=== PATIENT | male | born 1975 | race Caucasian/White ===

== ENCOUNTER 2018-06-27 17:49 | Inpatient (IN) ==
[2018-06-27] MEDS ORDERED: PIPERACILLIN/TAZOBACTAM 4.5 GM/120 ML BAG IV ONE (18:51)
[2018-06-27] MEDS ORDERED: VANCOMYCIN CONSULT ACTIVE PRN (18:51)
[2018-06-27] MEDS ORDERED: VANCOMYCIN HCL 1,750 MG in SODIUM CHLORIDE 0.9% 500 ML IV ONE (18:51)
[2018-06-27] MEDS ORDERED: SODIUM CHLORIDE 0.9% 1000ML 2,000 ML IV ONE (18:51)
--- NOTE | 2018-06-27 19:20 | XRay Report ---
XR chest 1V portable CLINICAL HISTORY: 42 years-old Male presenting with Sepsis. TECHNIQUE: Portable upright AP view of the chest was obtained. COMPARISON: None. FINDINGS: Cardiomediastinal silhouette normal. No focal opacity. Apparent well-defined lucency in the left retr ocardiac region may be projectional. No large effusion or pneumothorax. Osseous structures normal. IMPRESSION: 1. Apparent cavity in the left retrocardiac region is felt to most likely be projectional. Different ial consideration includes a focal bleb, pulmonary cyst, or cavity. No acute cardiopulmonary disease. Electronically signed by: Momo Springer M.D. 06/27/2018 7:19 PM
--- NOTE | 2018-06-27 19:22 | XRay Report ---
XR tibia fibula LT 2V CLINICAL HISTORY: 42 years-old Male presenting with eval for osseous involvement. TECHNIQUE: Frontal and lateral views of the left lower leg were obtained. COMPARISON: None. FINDINGS: Abnormal lucency in the soft tissues of the medial lower leg at the level of the proximal to mid diap hysis of the tibia. No subjacent osseous defect or periosteal reaction. Knee joint and ankle mortise grossly congruent. No acute fracture or malalignment. No advanced degenerative change. IMPRESSION: 1. Soft tissue defect in the medial lower leg. No subjacent osseous involvement. 2. No acute osseous injury. Electronically signed by: Moom Springer M.D. 06/27/2018 7:20 PM
[2018-06-27 19:49] LABS: Base Excess VBG -0.7 mEq/L; Oxygen Saturation VBG 92.9 %; pH VBG 7.48 (7.36-7.41)
[2018-06-27 19:59] LABS: Partial Thromboplastin Time 26.2 Seconds (21.0-31.0); Prothrombin Time 10.5 Seconds (9.0-12.0)
[2018-06-27 20:08] LABS: Alanine Aminotransferase 91 U/L (12-78); Albumin Level 3.8 gm/dl (3.4-5.0); Aspartate Aminotransferase 29 U/L (15-37); BUN Creatinine Ratio 6.9 (10-20); Blood Urea Nitrogen 7 mg/dl (7-18); Calcium 9.5 mg/dl (8.5-10.1); Carbon Dioxide 25 mmol/L (21-32); Chloride 106 mmol/L (98-107); Creatinine Clr Calc Pharmacy 96.6 ml/min; Est GFR (African American) 99.1; Est GFR (Non-African American) 85.5; Glucose 94 mg/dl (70-99); Magnesium 1.9 mg/dl (1.8-2.4); Potassium 3.8 mmol/L (3.5-5.1); Sodium 137 mmol/L (136-145)
[2018-06-27 20:12] LABS: Albumin Globulin Ratio 0.8 (0.9-2); Alkaline Phosphatase 92 U/L (45-117); Bilirubin Direct < 0.1 mg/dl (0-0.2); Bilirubin,Total 0.4 mg/dl (0.2-1); C Reactive Protein 0.69 mg/dl (0-0.29); Creatine Kinase 68 U/L (39-308); Globulin 4.6 gm/dl (2.5-4.0); Phosphorus 1.9 mg/dl (2.5-4.9); Total Protein 8.4 gm/dl (6.4-8.2)
[2018-06-27] MEDS ORDERED: IOVERSOL 100ml IV PRN (21:49)
[2018-06-27 21:51] LABS: Appearance Urine Clear (Clear); Bilirubin Urine Negative (Negative); Blood Urine Negative (Negative); Color Urine Yellow; Glucose Urine UA Negative (Negative); Ketones Urine Negative (Negative); Leukocyte Esterase Urine Negative (Negative); Nitrite Urine Negative (Negative); Protein Urine Negative (Negative); Specific Gravity Urine 1.013 (1.000-1.030); Urobilinogen Urine Negative (Negative)
--- NOTE | 2018-06-27 22:02 | CT Scan Report ---
CT lower leg LT w con CLINICAL HISTORY: 42 years-old Male presenting with eval for necrotic wound/osteo, marker placed at s ite of wound above and below injury site. TECHNIQUE: Multidetector CT of the left lower leg was performed after the administration of intraveno us contrast. IV contrast: 93 mL of Optiray 320. One or more dose lowering techniques were used consis tent with the principles of ALARA (as low as reasonably achievable), including automatic exposure con trol, mA or kV adjustment to individual patient size, and/or use of iterative reconstruction. COMPARISON: None. CT DOSE (mGy.cm): The estimated cumulative dose is 295.61 mGy.cm. FINDINGS: Epic Director topogram: Markers in place projecting over the proximal tibial metaphysis in the mid tibial odette physis. Subcutaneous infiltration, skin thickening, and skin irregularity noted along the anterior tibia. The re is also lili defects in the cutis with foci of subjacent gas superficially. The defect in the cut is is less extensive than the broader infiltrated region of abnormality. The skin defect measures 7.6 cm in length and maximally 3.4 cm in width. There is infiltration to the level of the anterior egovany x of the tibia. There is subtle irregularity and thinning of the periosteum along this region. There is no demonstrable soft tissue density within the medullary cavity to suggest medullary involvement. No convincing evidence of endosteal scalloping. No fracture. Musculature within the lower leg appears preserved. No deep interfascial fluid. Vasculature patent. N o soft tissue emphysema apart from the immediate tissue deep to the wound. IMPRESSION: 1. Subtle periosteal reaction suggested along the anterior tibia at the site of clinical concern wit hout changes of the endosteum or medullary cavity. These findings may suggest reactive changes adjace nt to the open wound. Osteomyelitis is not favored though early osteomyelitis is not excluded and fol low-up is necessary. Notably, MRI is more sensitive for a diagnosis of osteomyelitis. 2. Skin defect with extensive surrounding inflammatory change. No abscess. No CT evidence of necroti zing fasciitis. Electronically signed by: Momo Springer M.D. 06/27/2018 10:01 PM
[2018-06-28 00:11] LABS: Basophils # (auto) 0.02 K/uL (0-0.2); Basophils % (auto) 0.2 %; Eosinophils # (auto) 0.48 K/uL (0-0.5); Eosinophils % (auto) 3.6 %; Hematocrit (blood only) 49.9 % (42-52); Hemoglobin 17.8 g/dL (14.0-18.0); Immature Granulocytes # (auto) 0.13 K/uL (0.00-0.02); Lymphocytes # (auto) 2.41 K/uL (1.2-3.4); Lymphocytes % (auto) 18.3 %; Mean Corpuscular Hgb Conc 35.7 g/dL (32-36); Mean Corpuscular Volume 89.3 fL (80-100); Mean Platelet Volume 10.9 fL (7.4-10.4); Monocytes # (auto) 1.14 K/uL (0.11-0.59); Monocytes % (auto) 8.7 %; Neutrophils # (auto) 8.99 K/uL (1.4-6.5); Neutrophils % (auto) 68.2 %; Platelet Count 264 K/uL (130-400); RDW Coefficient of Variation 12.4 % (11.5-14.5); RDW Standard Deviation 40.5 fL (36.4-46.3); Red Blood Count 5.59 M/uL (4.7-6.1); White Blood Count 13.17 K/uL (4.8-10.8)
[2018-06-28] MEDS ORDERED: VANCOMYCIN CONSULT ACTIVE PRN (01:14)
[2018-06-28] MEDS ORDERED: PIPERACILL/TAZOBAC CONSULT ACTIVE PRN (01:14)
[2018-06-28] MEDS ORDERED: POLYETHYLENE (MIRALAX) 17 GM PACK PO PRN (01:14)
[2018-06-28] MEDS ORDERED: ACETAMINOPHEN 325 MG TAB PO PRN (01:14)
[2018-06-28] MEDS ORDERED: ONDANSETRON INJ 2 MG/ML 2 ML VIAL IV PRN ×3 (01:14→17:38)
[2018-06-28 01:34] LABS: Basophils # (auto) 0.02 K/uL (0-0.2); Basophils % (auto) 0.2 %; Eosinophils # (auto) 0.38 K/uL (0-0.5); Hematocrit (blood only) 43.1 % (42-52); Hemoglobin 15.1 g/dL (14.0-18.0); Immature Granulocytes # (auto) 0.07 K/uL (0.00-0.02); Immature Granulocytes % (auto) 0.7 %; Lymphocytes % (auto) 25.2 %; Mean Corpuscular Volume 89.2 fL (80-100); Monocytes # (auto) 0.54 K/uL (0.11-0.59); Monocytes % (auto) 5.7 %; Neutrophils # (auto) 6.12 K/uL (1.4-6.5); Neutrophils % (auto) 64.2 %; Platelet Count 212 K/uL (130-400); RDW Coefficient of Variation 12.3 % (11.5-14.5); RDW Standard Deviation 40.3 fL (36.4-46.3); Red Blood Count 4.83 M/uL (4.7-6.1); White Blood Count 9.53 K/uL (4.8-10.8)
[2018-06-28] MEDS ORDERED: HYDROmorphone INJ 0.5 MG/0.5 ML SYR ONE (01:36)
[2018-06-28 01:56] LABS: BUN Creatinine Ratio 6.7 (10-20); Creatinine Clr Calc Pharmacy 93.3 ml/min; Est GFR (African American) 94.8; Est GFR (Non-African American) 81.8; Magnesium 1.8 mg/dl (1.8-2.4); Potassium 3.4 mmol/L (3.5-5.1)
[2018-06-28] MEDS: SODIUM CHLORIDE 0.9% 1000ML 1,000 ML IV SCH ×4 (01:56→18:40)
--- NOTE | 2018-06-28 02:08 | Emergency Department Note ---
Entered by Sandy Resendez acting as a scribe for David Sepulveda MD History of Present Illness General Chief complaint: Leg Injury/Pain Stated complaint: LEG INJURY Time Seen by Provider: 06/27/18 18:42 Source: patient History of Present Illness Onset (ago): day(s) 4 Location: lower extremity and left Pain Consistency: + other (worsening ) Maximum Pain Intensity: 6 Quality: + other (wound) Associated symptoms: no fever/chills and no nausea/vomiting The patient is a 42 year old male who presents to the Emergency Room with complaints of a worsening left leg wound that began 4 days prior to arrival. The patient states that 2 months ago he was at work when his left leg got run over by a piece of equipment. The patient states that he did not get treatment for his initial injury. He states that this injury eventually became red before he was put on Augmentin, and the patient states that this relieved his symptoms. The patient states that this redness reoccurred after he stopped the Augmentin, and states that he was placed on this again, which he states helped to relieve his symptoms again. The patient states that his wound has been healing well over the past 3 weeks while he went back to work again. The patient states that he believes he was over working himself at work. He states that a scab formed over his wound, and there was a fluid that began to leak out from under this scab. The patient states that 4 days ago this scab came off of the wound and left his wound open, painful, and red. The patient denies fevers, nausea, and vomiting. Home Medications Home Medications Medication Instructions Recorded Confirmed Type No Known Home Medications 06/27/18 06/27/18 History Allergies Allergy/AdvReac Type Severity Reaction Status Date / Time Sulfa (Sulfonamide Allergy Severe Rash Verified 06/27/18 18:45 Antibiotics) Past Med/Surg History Medical History No significant past medical history Social History Preferred Language: Syriac Communication Ability: Effective Metal Coater Required: No Beliefs That Will Affect Care: None Current Living Situation: Significant Other Feels Safe at Home: Yes Safety Concerns: Feels Safe At This Time Smoking Status: Current every day smoker Tobacco Type: cigarettes Cigarettes Per Day: 10 Hx Alcohol Use: Yes Alcohol type: beer Hx Substance Use: Yes substance use type: marijuana Review of Systems See HPI for pertinent positives & negatives. and A total of 10 systems reviewed and were otherwise negative Physical Exam Vital Signs Vital Signs - 24 hr 06/27/18 17:58 06/27/18 18:53 06/27/18 20:00 Temperature 37 C Temperature Source Oral Sepsis Recent Fever Within 48 Hours No Sepsis Action Taken by Nursing No Action Required Pulse Rate 142 H 97 H 92 H Pulse Rate [Apical] Pulse Rate from SpO2 Sensor Pulse Rhythm Regular Regular Pulse Rhythm [Apical] Pulse Strength Normal Pulse Strength [Apical] Respiratory Rate 20 19 Respiratory Effort / Characteristics Non-Labored Spontaneous Respiratory Depth Normal Respiratory Pattern Blood Pressure 158/114 H 168/115 H Blood Pressure [Right Arm] Blood Pressure Mean 128 132 Blood Pressure Mean [Right Arm] Pulse Oximetry 142 H 98 Oxygen Delivery Method Room Air Room Air 06/27/18 20:52 06/27/18 21:00 06/27/18 22:00 Temperature Temperature Source Sepsis Recent Fever Within 48 Hours Sepsis Action Taken by Nursing Pulse Rate 90 92 H 94 H Pulse Rate [Apical] Pulse Rate from SpO2 Sensor 95 H Pulse Rhythm Pulse Rhythm [Apical] Pulse Strength Pulse Strength [Apical] Respiratory Rate 21 25 H 17 Respiratory Effort / Characteristics Respiratory Depth Respiratory Pattern Blood Pressure 151/104 H 150/108 H Blood Pressure [Right Arm] Blood Pressure Mean 119 122 Blood Pressure Mean [Right Arm] Pulse Oximetry 96 Oxygen Delivery Method 06/27/18 23:00 Temperature Temperature Source Sepsis Recent Fever Within 48 Hours Sepsis Action Taken by Nursing Pulse Rate Pulse Rate [Apical] 87 Pulse Rate from SpO2 Sensor Pulse Rhythm Pulse Rhythm [Apical] Regular Pulse Strength Pulse Strength [Apical] Normal Respiratory Rate 19 Respiratory Effort / Characteristics Non-Labored Spontaneous Respiratory Depth Normal Respiratory Pattern Regular Blood Pressure Blood Pressure [Right Arm] 148/110 H Blood Pressure Mean Blood Pressure Mean [Right Arm] 122 Pulse Oximetry 96 Oxygen Delivery Method Room Air GENERAL: Awake, alert, well-appearing, in no distress HENT: Normocephalic, atraumatic. Oropharynx with dry mucous membranes and otherwise unremarkable. EYES: Normal conjunctiva. Sclera non-icteric. NECK: Supple. No nuchal rigidity. FROM. No JVD. RESPIRATORY: CTAB. CARDIAC: Tachycardic rate, normal rhythm. Extremities warm and well perfused. Pulses equal. ABDOMEN: Soft, non-distended. No tenderness to palpation. No rebound or guardi ng. No masses. RECTAL: Deferred. MUSCULOSKELETAL: Chest examination reveals no tenderness. The back is symmetrical on inspection without obvious abnormality. There is no CVA tenderness to palpation. No joint edema. LOWER EXTREMITIES: Calves are equal size bilaterally and non-tender. 10cm wound to the left mid-pretibial region with evulsed eschar demonstrating a purulent, foul smelling wound bed. No overt surrounding crepitus. Distal PMS intact. NEURO: Normal sensorium. No sensory or motor deficits noted. SKIN: No rash or jaundice noted. Course 1844: The patient was evaluated in room A2, and a complete history and physical examination were performed. 2244: [facility] for [facility] evaluation and states that they will consult Ortho in AM. 2247: I updated the patient on all of the results and he agrees with the treatment plan. Administered Medications Discontinued Medications Hydromorphone HCl (Dilaudid) Confirm Administered Dose 0.5 mg .ROUTE .STK-MED ONE Stop: 06/28/18 01:37 Last Admin: 06/28/18 01:37 Dose: 0.5 mg Documented by: [id number] Piperacillin Sod/Tazobactam Sod (Zosyn) 4.5 gm in 120 mls @ 30 mls/hr IV NOW ONE Stop: 06/27/18 22:50 Last Admin: 06/27/18 23:00 Dose: 30 mls/hr Documented by: [id number] Sodium Chloride (Nss 1000ml) 2,000 mls @ 999 mls/hr IV .Q2H1M ONE Stop: 06/27/18 20:51 Last Infusion: 06/27/18 22:03 Dose: 0 mls/hr Documented by: [id number] Admin: 06/27/18 19:44 Dose: 999 mls/hr Documented by: [id number] Vancomycin HCl 1,750 mg/ (Sodium Chloride) 535 mls @ 200 mls/hr IV NOW ONE; Protocol Stop: 06/27/18 21:31 Last Infusion: 06/27/18 23:03 Dose: 0 mls/hr Documented by: [id number] Admin: 06/27/18 19:45 Dose: 200 mls/hr Documented by: [id number] Ioversol (Optiray 320 100ml) 93 ml IV ONCE PRN PRN Reason: Interaction Checking Stop: 07/01/18 21:48 Last Admin: 06/27/18 21:50 Dose: 93 ml Documented by: [id number] Medical Decision Making Differential Diagnosis Differential diagnosis: Etiologies such as cellulitis, abscess, MRSA infection, DVT, necrotizing fasciitis, dermatitis, drug eruption, as well as others were entertained. Medical Records Attestation: I reviewed the patient's medical records. Home Medications Current Medication List: was personally reviewed by me Laboratory Data Attestation: I reviewed the patient's lab results. Result diagrams: 06/28/18 01:23 06/27/18 19: Lab Results 06/27/18 06/27/18 06/27/18 Range/Units 19: 19: 19:19 WBC 13.17 H (4.8-10.8) K/uL RBC 5.59 (4.7-6.1) M/uL Hgb 17.8 (14.0-18.0) g/dL Hct 49.9 (42-52) % MCV 89.3 (80-100) fL MCH 31.8 (25-34) pg MCHC 35.7 (32-36) g/dL RDW Std Deviation 40.5 (36.4-46.3) fL RDW Coeff of Daly 12.4 (11.5-14.5) % Plt Count 264 (130-400) K/uL MPV 10.9 H (7.4-10.4) fL Immature Gran % (Auto) 1.0 % Neut % (Auto) 68.2 % Lymph % (Auto) 18.3 % Cottle % (Auto) 8.7 % Eos % (Auto) 3.6 % Baso % (Auto) 0.2 % Immature Gran # (Auto) 0.13 H (0.00-0.02) K/uL Neut # (Auto) 8.99 H (1.4-6.5) K/uL Lymph # (Auto) 2.41 (1.2-3.4) K/uL Cottle # (Auto) 1.14 H (0.11-0.59) K/uL Eos # (Auto) 0.48 (0-0.5) K/uL Baso # (Auto) 0.02 (0-0.2) K/uL ESR (0-14) mm/hr PT 10.5 (9.0-12.0) Seconds INR 1.0 (0.9-1.1) APTT 26.2 (21.0-31.0) Seconds PTT Ratio 1.0 VBG pH (7.36-7.41) VBG pCO2 (38-50) mmHg VBG pO2 mmHg VBG HCO3 mmol/L VBG O2 Saturation % VBG Base Excess mEq/L Barometric Pressure mm/Hg Sodium (136-145) mmol/L Potassium (3.5-5.1) mmol/L Chloride (98-107) mmol/L Carbon Dioxide (21-32) mmol/L Anion Gap (3-11) BUN (7-18) mg/dl Creatinine (0.6-1.4) mg/dl Est Cr Clr Drug Dosing ml/min Est GFR ( Amer) Est GFR (Non-Af Amer) BUN/Creatinine Ratio (10-20) Glucose (70-99) mg/dl Lactate (0.4-2.0) mmol/L Calcium (8.5-10.1) mg/dl Phosphorus (2.5-4.9) mg/dl Magnesium (1.8-2.4) mg/dl Total Bilirubin (0.2-1) mg/dl Direct Bilirubin (0-0.2) mg/dl AST (15-37) U/L ALT (12-78) U/L Alkaline Phosphatase (45-117) U/L Total Creatine Kinase (39-308) U/L C-Reactive Protein (0-0.29) mg/dl Total Protein (6.4-8.2) gm/dl Albumin (3.4-5.0) gm/dl Globulin (2.5-4.0) gm/dl Albumin/Globulin Ratio (0.9-2) Procalcitonin < 0.05 (0-0.5) ng/ml Urine Color Urine Appearance (Clear) Urine pH (4.5-7.5) Ur Specific [place] (1.000-1.030) Urine Protein (Negative) Urine Glucose (UA) (Negative) Urine Ketones (Negative) Urine Blood (Negative) Urine Nitrite (Negative) Urine Bilirubin (Negative) Urine Urobilinogen (Negative) Ur Leukocyte Esterase (Negative) 06/27/18 06/27/18 06/27/18 Range/Units 19:19 19:19 19:19 WBC (4.8-10.8) K/uL RBC (4.7-6.1) M/uL Hgb (14.0-18.0) g/dL Hct (42-52) % MCV (80-100) fL MCH (25-34) pg MCHC (32-36) g/dL RDW Std Deviation (36.4-46.3) fL RDW Coeff of Daly (11.5-14.5) % Plt Count (130-400) K/uL MPV (7.4-10.4) fL Immature Gran % (Auto) % Neut % (Auto) % Lymph % (Auto) % Cottle % (Auto) % Eos % (Auto) % Baso % (Auto) % Immature Gran # (Auto) (0.00-0.02) K/uL Neut # (Auto) (1.4-6.5) K/uL Lymph # (Auto) (1.2-3.4) K/uL Cottle # (Auto) (0.11-0.59) K/uL Eos # (Auto) (0-0.5) K/uL Baso # (Auto) (0-0.2) K/uL ESR 46 H (0-14) mm/hr PT (9.0-12.0) Seconds INR (0.9-1.1) APTT (21.0-31.0) Seconds PTT Ratio VBG pH (7.36-7.41) VBG pCO2 (38-50) mmHg VBG pO2 mmHg VBG HCO3 mmol/L VBG O2 Saturation % VBG Base Excess mEq/L Barometric Pressure mm/Hg Sodium 137 (136-145) mmol/L Potassium 3.8 (3.5-5.1) mmol/L Chloride 106 (98-107) mmol/L Carbon Dioxide 25 (21-32) mmol/L Anion Gap 6.0 (3-11) BUN 7 (7-18) mg/dl Creatinine 1.06 (0.6-1.4) mg/dl Est Cr Clr Drug Dosing 96.6 ml/min Est GFR ( Amer) 99.1 Est GFR (Non-Af Amer) 85.5 BUN/Creatinine Ratio 6.9 L (10-20) Glucose 94 (70-99) mg/dl Lactate 2.2 H* (0.4-2.0) mmol/L Calcium 9.5 (8.5-10.1) mg/dl Phosphorus 1.9 L (2.5-4.9) mg/dl Magnesium 1.9 (1.8-2.4) mg/dl Total Bilirubin 0.4 (0.2-1) mg/dl Direct Bilirubin < 0.1 (0-0.2) mg/dl AST 29 (15-37) U/L ALT 91 H (12-78) U/L Alkaline Phosphatase 92 (45-117) U/L Total Creatine Kinase 68 (39-308) U/L C-Reactive Protein 0.69 H (0-0.29) mg/dl Total Protein 8.4 H (6.4-8.2) gm/dl Albumin 3.8 (3.4-5.0) gm/dl Globulin 4.6 H (2.5-4.0) gm/dl Albumin/Globulin Ratio 0.8 L (0.9-2) Procalcitonin (0-0.5) ng/ml Urine Color Urine Appearance (Clear) Urine pH (4.5-7.5) Ur Specific [place] (1.000-1.030) Urine Protein (Negative) Urine Glucose (UA) (Negative) Urine Ketones (Negative) Urine Blood (Negative) Urine Nitrite (Negative) Urine Bilirubin (Negative) Urine Urobilinogen (Negative) Ur Leukocyte Esterase (Negative) 06/27/18 06/27/18 Range/Units 19:19 21:30 WBC (4.8-10.8) K/uL RBC (4.7-6.1) M/uL Hgb (14.0-18.0) g/dL Hct (42-52) % MCV (80-100) fL MCH (25-34) pg MCHC (32-36) g/dL RDW Std Deviation (36.4-46.3) fL RDW Coeff of Daly (11.5-14.5) % Plt Count (130-400) K/uL MPV (7.4-10.4) fL Immature Gran % (Auto) % Neut % (Auto) % Lymph % (Auto) % Cottle % (Auto) % Eos % (Auto) % Baso % (Auto) % Immature Gran # (Auto) (0.00-0.02) K/uL Neut # (Auto) (1.4-6.5) K/uL Lymph # (Auto) (1.2-3.4) K/uL Cottle # (Auto) (0.11-0.59) K/uL Eos # (Auto) (0-0.5) K/uL Baso # (Auto) (0-0.2) K/uL ESR (0-14) mm/hr PT (9.0-12.0) Seconds INR (0.9-1.1) APTT (21.0-31.0) Seconds PTT Ratio VBG pH 7.48 H (7.36-7.41) VBG pCO2 30 L (38-50) mmHg VBG pO2 60 mmHg VBG HCO3 22 mmol/L VBG O2 Saturation 92.9 % VBG Base Excess -0.7 mEq/L Barometric Pressure 734.0 mm/Hg Sodium (136-145) mmol/L Potassium (3.5-5.1) mmol/L Chloride (98-107) mmol/L Carbon Dioxide (21-32) mmol/L Anion Gap (3-11) BUN (7-18) mg/dl Creatinine (0.6-1.4) mg/dl Est Cr Clr Drug Dosing ml/min Est GFR ( Amer) Est GFR (Non-Af Amer) BUN/Creatinine Ratio (10-20) Glucose (70-99) mg/dl Lactate (0.4-2.0) mmol/L Calcium (8.5-10.1) mg/dl Phosphorus (2.5-4.9) mg/dl Magnesium (1.8-2.4) mg/dl Total Bilirubin (0.2-1) mg/dl Direct Bilirubin (0-0.2) mg/dl AST (15-37) U/L ALT (12-78) U/L Alkaline Phosphatase (45-117) U/L Total Creatine Kinase (39-308) U/L C-Reactive Protein (0-0.29) mg/dl Total Protein (6.4-8.2) gm/dl Albumin (3.4-5.0) gm/dl Globulin (2.5-4.0) gm/dl Albumin/Globulin Ratio (0.9-2) Procalcitonin (0-0.5) ng/ml Urine Color Yellow Urine Appearance Clear (Clear) Urine pH 5.0 (4.5-7.5) Ur Specific [place] 1.013 (1.000-1.030) Urine Protein Negative (Negative) Urine Glucose (UA) Negative (Negative) Urine Ketones Negative (Negative) Urine Blood Negative (Negative) Urine Nitrite Negative (Negative) Urine Bilirubin Negative (Negative) Urine Urobilinogen Negative (Negative) Ur Leukocyte Esterase Negative (Negative) Imaging Data Radiologist's Impression: Radiology results as stated below per my review and the radiologist's interpretation: XR chest 1V portable CLINICAL HISTORY: 42 years-old Male presenting with Sepsis. TECHNIQUE: Portable upright AP view of the chest was obtained. COMPARISON: None. FINDINGS: Cardiomediastinal silhouette normal. No focal opacity. Apparent well-defined lucency in the left retrocardiac region may be projectional. No large effusion or pneumothorax. Osseous structures normal. IMPRESSION: 1. Apparent cavity in the left retrocardiac region is felt to most likely be projectional. Differential consideration includes a focal bleb, pulmonary cyst, or cavity. No acute cardiopulmonary disease. Electronically signed by: Momo Springer M.D. 06/27/2018 7:19 PM XR tibia fibula LT 2V CLINICAL HISTORY: 42 years-old Male presenting with eval for osseous involvement. TECHNIQUE: Frontal and lateral views of the left lower leg were obtained. COMPARISON: None. FINDINGS: Abnormal lucency in the soft tissues of the medial lower leg at the level of the proximal to mid diaphysis of the tibia. No subjacent osseous defect or periosteal reaction. Knee joint and ankle mortise grossly congruent. No acute fracture or malalignment. No advanced degenerative change. IMPRESSION: 1. Soft tissue defect in the medial lower leg. No subjacent osseous involvement. 2. No acute osseous injury. Electronically signed by: Momo Springer M.D. 06/27/2018 7:[address] lower leg LT w con CLINICAL HISTORY: 42 years-old Male presenting with eval for necrotic wound/osteo, marker placed at site of wound above and below injury site. TECHNIQUE: Multidetector CT of the left lower leg was performed after the administration of intravenous contrast. IV contrast: 93 mL of Optiray 320. One or more dose lowering techniques were used consistent with the principles of ALARA (as low as reasonably achievable), including automatic exposure control, mA or kV adjustment to individual patient size, and/or use of iterative reconstruction. COMPARISON: None. CT DOSE (mGy.cm): The estimated cumulative dose is 295.61 mGy.cm. 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 Subcutaneous infiltration, skin thickening, and skin irregularity noted along the anterior tibia. There is also lili defects in the cutis with foci of subjacent gas superficially. The defect in the cutis is less extensive than the broader infiltrated region of abnormality. The skin defect measures 7.6 cm in length and maximally 3.4 cm in width. There is infiltration to the level of the anterior cortex of the tibia. There is subtle irregularity and thinning of the periosteum along this region. There is no demonstrable soft tissue density w ithin the medullary cavity to suggest medullary involvement. No convincing evidence of endosteal scalloping. No fracture. Musculature within the lower leg appears preserved. No deep interfascial fluid. Vasculature patent. No soft tissue emphysema apart from the immediate tissue deep to the wound. IMPRESSION: 1. Subtle periosteal reaction suggested along the anterior tibia at the site of clinical concern without changes of the endosteum or medullary cavity. These findings may suggest reactive changes adjacent to the open wound. Osteomyelitis is not favored though early osteomyelitis is not excluded and follow-up is necessary. Notably, MRI is more sensitive for a diagnosis of osteomyelitis. 2. Skin defect with extensive surrounding inflammatory change. No abscess. No CT evidence of necrotizing fasciitis. Electronically signed by: Momo Springer M.D. 06/27/2018 10:01 PM ECG Data Attestation: I personally reviewed and interpreted this ECG as follows: Indication: tachycardia Rate (beats per minute): 101 Rhythm: sinus tachycardia Findings: + other (normal axis; no overt acute ischemia ) Blood Pressure Blood Pressure Findings: Elevated blood pressure Blood Pressure Disposition: further management by hospitalist [place] Park The patient is a pleasant 42 y/o gentleman who presents to the emergency department with worsening left lower leg wound, which had initial occurred 1 month [employer] at work where a piece of machinery rolled over his leg. per HPI. Patient reports he was able to ambulate afterwards and has been following with his workman's [facility] medical office. He denies having any Xray and reports intially being placed on antibiotic, which help initial redness resolved however then he reports it worsened at which point he was placed on another ABX with subsequent improvement. Patient reports on Tuesday his "scab" demonstrated yellow discharge weeping from underneath until finally the scab peeled off. Since then he reports it has been more foul smelling and painful. Denies fevers, chills, cough, congestion, nausea or vomiting. On arrival the patient is in NAD, AF, with HR in the 100s and otherwise VSS. On exam the patient appears clinically dry. His left lower leg demonstrates 10cm wound to the left mid- pretibial region with evulsed eschar demonstrating a purulent, foul smelling wound bed. No overt crepitus on exam. Distal PMS intact. Plain film negative for fracture of gas. EKG without overt acute ischemia. CXR with question bleb vs artifact of unclear signficance and otherwise negative for acute process. WBC 13.1 and H/H, platelets wnl. Initial lactate 2.2 however Chemistry without acidosis. Procalcitonin < 0.05. LFTs unremarkable. ESR 46 and CRP 0.69. UA ne gative. CT of LLE demonstrates "subtle periosteal reaction suggested along the anterior tibia...without changes of the endosteum or medullary cavity", which could suggest reactive changes adjacent to the open wound. Osteo is not likely though early oesto is not excluded. Regarding open wound, there are extensive surrounding inflammatory change without abscess or CT evidence of necrotizing fasciitis. Patient was treatment emprically with Vanc and zosyn on arrival. Wound culture sent. Case d/w Dr. Del Rosario, [facility] hospitalist, who will evaluate the patient for admission and likely orthopedic consultation for possible debridement and washout. Impression & Plan Cellulitis, Eschar of wound bed Critical Care Time I have personally spent greater than 35 minutes of critical care time in the di rect management of this patient. This includes bedside care, interpretation of diagnostic studies, and testing, discussion with consultants, patient, and family members, and other required patient management activities. This 35 minutes is in excess of all separately billable procedures. Critical Care Time: Yes Total Critical Care Time: 35 Discharge Plan Visit Data *Final* Discharge Date/Time: 06/28/18 00:53 Chief Complaint: Leg Injury/Pain Stated Complaint: LEG INJURY ED Provider: David Sepulveda Discharge Problem: Cellulitis, Eschar of wound bed Patient Disposition: Admitted As Inpatient Discharge Instructions Interventions: ED Discharge Assessment Last Done: 06/28/18 00:53 Discharge Problem: Cellulitis Qualifiers: Site of cellulitis: extremity Site of cellulitis of extremity: lower extremity Laterality: left Qualified Code(s): L03.116 - Cellulitis of left lower limb The scribe's documentation has been prepared under my direction and personally reviewed by me in its entirety. I confirm that the note above accurately reflects all work, treatment, procedures, and medical decision making performed by me.
--- NOTE | 2018-06-28 02:10 | History and Physical Report ---
DATE OF ADMISSION: 06/27/2018 CHIEF COMPLAINT: Left lower extremity wound. HISTORY OF PRESENT ILLNESS: A 42-year-old male with no significant past medical history presents with left lower extremity wound. The patient says he had an equipment injury in April, followed with family doctor, took 10 days course of Augmentin x 2, seem to be improved and he went to work recently, light work, but noted again some redness around the area with a scab and today the scab came out and suddenly there was lot of foul smelling drainage seen and there was a deep hole, so he came to the ER here. Imaging studies showed subtle periosteal reaction periosteomyelitis could not be excluded. The patient is afebrile and hemodynamically stable. His lactate acid was slightly high at 2.2. Currently resting comfortably. The patient denies any significant pain. He was able to ambulate on the leg. Denies any chest pain, no shortness of breath, no cough, no headache, no blurred vision, no runny nose, no sore throat, some itching in the throat, started on antibiotics. No abdominal pain, no nausea, no vomiting, no diarrhea, no constipation, no blood in the stools, no hematuria, no burning micturition. ALLERGIES: SULFA ANTIBIOTICS. PAST MEDICAL HISTORY: None. PAST SURGICAL HISTORY: None. MEDICATIONS: None currently at home. FAMILY HISTORY: Significant for father of [employer] cancer. Mother is alive. SOCIAL HISTORY: Smokes 10 cigarettes a day for last 20 years. Alcohol, drinks 4-5 beers every day. REVIEW OF SYMPTOMS: As per HPI. Rest of review of systems negative. PHYSICAL EXAMINATION: GENERAL: The patient is of moderate build, not in acute distress. VITAL SIGNS: Temperature 37, pulse 87, respiratory rate 19, blood pressure 148/110 and oxygen 96% of room air. HEENT: No pallor, no icterus. Pupils equal, round, and reactive to light. NECK: No JVD, no neck mass, no carotid bruit. CARDIOVASCULAR: S1, S2 heard, regular rate and rhythm, no murmur, no gallop. RESPIRATORY SYSTEM: Normal AP diameter. No accessory muscle use. No wheezing, no crackles. ABDOMEN: Soft, bowel sounds present. Nontender. No distention. CENTRAL NERVOUS SYSTEM: Cranial nerves II-XII grossly intact. Nonfocal. EXTREMITIES: No edema seen. Left campos region has a deep wound with foul smelling drainage, muscles are exposed. LABORATORIES: Sodium 137, potassium 3.8, chloride 106, bicarbonate 25, BUN 7, creatinine 1, serum glucose 94, lactate 2.2, calcium 9.5, phosphorus 1.9, total bilirubin 0.4, direct bilirubin less than 0.1, AST 29, ALT 91, alkaline phosphatase is 92, total creatine kinase 68, procalcitonin less than 0.05. Urinalysis negative. Tibia-fibula x-ray, soft tissue defect in the medial lower leg. No osseous involvement. No acute osseous injury. Chest x-ray: No acute cardiopulmonary disease. PermCath in the left retrocardiac region is felt most likely to be projectional. Lower extremity CT subtle periosteal reaction, periosteomyelitis currently ruled out. EKG: Sinus tachycardia with rate of 101. No acute ST changes seen. ASSESSMENT AND PLAN: 1. This is a 42-year-old male who presents with left lower extremity wound possible osteomyelitis, foul smelling drainage, had an equipment injury in April, took 20 days course of Augmentin, seem to be healed, but again started work, light duty work, but today his scab came out and was draining foul smelling and had a deep hole, muscles were exposed. There is no necrosis as per CT scan. We will start her on IV Zosyn and IV vancomycin. Blood cultures and wound cultures drawn in the ER which we will follow. We will do MRI scan to rule out osteomyelitis. Consult ortho and ID in a.m. and monitor for response. 2. Questionable pulmonary on chest x-ray. We will get chest x-ray, PA and lateral view. 3. Elevated lactic acids, possible sepsis.Tachycardia on presentation. We do not have white count, labs are pending, Has elevated lactic acid. Foul smelling left lower extremity wound. IV fluids, antibiotics as above. We will follow repeat lactic acid. 4. Deep venous thrombosis prophylaxis. cannot place on SCDs, because of the wound. Continue holding the heparin for any procedure tomorrow. We will place on heparin or Lovenox if there is no plan for any procedure or after procedure and patient still in hospital DISPOSITION: Admit to medical floor. Level 1, full code. MTDD
[2018-06-28] MEDS: VANCOMYCIN HCL 1,500 MG in SODIUM CHLORIDE 0.9% 500 ML IV SCH ×3 (03:52→23:50)
--- NOTE | 2018-06-28 06:23 | XRay Report ---
XR orbits for MRI HISTORY: Pre-MRI pre-MRI screening. COMPARISON: None. FINDINGS: There are no radiopaque foreign bodies identified within the orbits. IMPRESSION: No radiopaque foreign bodies identified within the orbits. The above report was generated using voice recognition software. It may contain grammatical, syntax or spelling errors. Electronically signed by: Demar Moncada M.D. 06/28/2018 6:21 AM
[2018-06-28] MEDS: PIPERACILLIN/TAZOBACTAM 3.375 GM in DEXTROSE 5% 100 ML IV SCH ×3 (06:31→21:25)
[2018-06-28] MEDS ORDERED: SODIUM PHOSPHATE 3 MMOL/1 ML INFUSION IV STA (06:38)
[2018-06-28] MEDS ORDERED: SODIUM PHOSPHATE 21 MMOL in SODIUM CHLORIDE 0.9% 500 ML IV ONE (07:00)
[2018-06-28] MEDS ORDERED: POTASSIUM CHLORIDE 10 MEQ TABCR PO STA (09:37)
[2018-06-28] MEDS ORDERED: GADOBUTROL 65ML VIAL IV PRN (09:44)
--- NOTE | 2018-06-28 10:12 | Magnetic Resonance Report ---
MR lower leg LT wo/w con CLINICAL HISTORY: osteomyelitis. Left leg ulceration. TECHNIQUE: Multiplanar multisequence MRI of the left lower leg was performed both before and after th e intravenous administration of 8.5 cc of Gadavist contrast. COMPARISON STUDY: Left lower leg CT 06/27/2018. FINDINGS: There is a 3.5 cm focal skin ulceration within the anterior lower leg at the level of the m id tibia. There is underlying skin edema and enhancement which abuts the anterior cortex of the mid t ibia. There is mild periosteal edema/enhancement at the mid tibial shaft. However, there is no cortic al obstruction or abnormal marrow signal within the medullary cavity to suggest osteomyelitis at this time. No loculated fluid collections to suggest an abscess. There is also subcutaneous edema within the pretibial soft tissues and ankle. No fracture or dislocation within the tibia or fibula. The deep muscle compartments demonstrate a normal signal intensity. IMPRESSION: A 3.5 cm focal skin ulceration within the anterior lower leg at the level the mid tibia. Deep to the skin ulceration is mild periosteal edema/enhancement at the mid tibial shaft which may be reactive to the skin ulceration/cellulitis. However, no cortical destruction or abnormal marrow signal within th e medullary cavity to suggest osteomyelitis at this time. Electronically signed by: Oj Plata M.D. 06/28/2018 10:10 AM
--- NOTE | 2018-06-28 10:28 | XRay Report ---
XR chest 2V routine HISTORY: Left lung abnormality. Follow-up. COMPARISON: None. FINDINGS: The lungs are clear. Cardiac silhouette is normal in size. No pleural effusions. No pneumot horax. Old, healed right clavicle fracture. IMPRESSION: No acute process within the chest. Specifically, no evidence for a cavitary focus within the lungs. Electronically signed by: Oj Plata M.D. 06/28/2018 10:26 AM
--- NOTE | 2018-06-28 10:39 | Infectious Disease Consult ---
Date of Consultation June 28, 2018 Assessment & Plan (1) Infection, wound status post trauma: await MRI findings but highly concerned for gangrene wound. no necrotizing fasciitis seen on CT but will need to undergo surgical debridement of necrotic wound. Blood and superficial wound culture pending, maintain broad spectrum abx and will add brief course of IV clinda. await surgical eval. follow cultures. will follow. History of Present Illness Attending Physician: Willian Elias MD pt admitted with worsening lle wound. 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 suffered wound to left anterior calf. was treated with 2 courses of Augmentin as an outpatient, unclear duration. Initially felt better. no f/c. no drainage or bleeding from wound. was not working for some time but then was placed back at work on light duty. After returning to work he noticed the scab on his wound began to come off, sometime during the last week. He states initially it felt fine, he was doing dressing changes at home on a daily basis. Over the weekend he noted increased drainage from the wound as the scab was coming off and he noticed the drainage change from blood tinged to thick yellow/green foul smelling drainage. He denies any f/c during this. Due to worsening pain and increased drainage he came to ER yesterday. He is able to walk without significant pain. family present during my exam. In ER ct scan was done, show 7.6x3.4 skin defect without abscess or gas formation, ? periosteo inflammation, MRI ordered and done just before my exam, result pending. wbc initially 13, 9 today. ESR elevated at 46, creat stable. lactate slightly elevated in ER 2.2, 2 upon repeat. 06/27 blood cultures pending, wound culture pending as well, gpc, gnr, gpr on gram stain. was placed on zosyn and vanco, tolerating well. appears comfortable on exam, has picture on her cell phone taken in ER last night, signifcant purulent drainage with surrounding discoloration of skin and necrotic center. foul odor noted. purulent drainage noted from dressing. dressing not removed due to patient pain level. NPO this am. Denies f/c, appetite stable, pain controlled, no n/v/d/abd pain, tolerating abx, no gu symptoms. no cp, sob, cough, denies any pmh. Allergies Allergy/AdvReac Type Severity Reaction Status Date / Time Sulfa (Sulfonamide Allergy Severe Rash Verified 06/27/18 18:45 Antibiotics) Home Medications Home Medications Medication Instructions Recorded Confirmed Type No Known Home Medications 06/27/18 06/27/18 History Patient History Medical History No significant past medical history Social History Preferred Language: Cymro Communication Ability: Effective Compensation Adjuster Required: No Beliefs That Will Affect Care: None Current Living Situation: Significant Other Feels Safe at Home: Yes Safety Concerns: Feels Safe At This Time Smoking Status: Current every day smoker Tobacco Type: cigarettes Cigarettes Per Day: 10 Hx Alcohol Use: Yes Alcohol type: beer Hx Substance Use: Yes substance use type: marijuana Review of Systems Review of Systems: All systems reviewed & are unremarkable except as noted in HPI & below Physical Exam Constitutional: WD/WN, vitals as above Eyes: PERRL, conjunctivae normal, anicteric sclerae ENMT: external ear and nose normal, oropharynx normal Neck: normal visual inspection Respiratory: normal respiratory effort, lungs clear to auscultation Cardiovascular: RRR, no murmur, no edema Gastrointestinal (Abdomen): normal bowel sounds, soft, nontender, no hepatosplenomegaly Musculoskeletal: no cyanosis or clubbing, extremities motor strength 5/5 Skin: no rashes, warm and dry lle dressing with dried purulent drainage. dressing not removed completely due to pain but purulent drainge noted, no surrounding warmth or erythema noted but skin discolored surrounding wound. foul odor present. photo from ER reviewed. Psychiatric: A+Ox3, euthymic affect Results & Data Vital Signs (Past 12 Hours) Vital Signs Temp Pulse Pulse Resp BP BP BP 06/28/18 07:24 36.7 C 65 20 136/91 06/28/18 01:14 36.9 C 91 H 16 157/101 H 06/28/18 00:53 81 18 148/101 H 06/27/18 23:00 87 19 148/110 H Pulse Ox 06/28/18 07:24 97 06/28/18 01:14 98 06/28/18 00:53 98 06/27/18 23:00 96 Laboratory Results Microbiology 06/27/18 19:37 Leg,Left Gram Stain - Final
[2018-06-28] MEDS: HYDROmorphone INJ 0.5 MG/0.5 ML SYR IV PRN ×3 (10:49→22:09)
[2018-06-28] MEDS: CLINDAMYCIN 600 MG in DEXTROSE 5% 50 ML IV SCH ×2 (12:41→18:41)
--- NOTE | 2018-06-28 13:22 | Hospitalist Progress Note ---
Date of Service June 28, 2018 Assessment & Plan (1) Infection, wound status post trauma: (2) Cellulitis: This is a 42yo M with tobacco use disorder who presents with infected left lower extremity wound and surrounding cellulitis. -H/o equipment injury in April, followed with family doctor, took 10 days course of Augmentin x 2 -Seemed to be improved and he went to work recently and noted again some redness around the area with a scab and foul smelling drainage -Afebrile and hemodynamically stable. Leukocytosis and lactate improving with abx and IV fluids -Started on Vanco and Zosyn empirically. Blood and wound cultures pending -Left lower extremity MRI with 3.5 cm focal skin ulceration with mild periosteal edema that may be reactive to skin ulceration/cellulitis. However no evidence to suggest osteomyelitis at this time -Evaluated by ID * Highly concerned for gangrene wound. No necrotizing fasciitis seen on CT but will need to undergo surgical debridement of necrotic wound * Maintain broad spectrum abx and will add brief course of IV clinda -Ortho surgery consulted -Pain control DVT Ppx: SCDs for now due to possible surgical intervention. Code status: FULL Dispo: Admitted to med/surg. Plan to return home once medically stable. Patient seen in collaboration with Dr. Elias. Please see addendum. Supervising Physician Co-Signing Physician Notes Patient is seen and examined at bedside. Complains of leg pain at the site of the wound. Offers no other complaints. Patient had I&D by orthopedics today. Agree with continuing Vanco and Zosyn. Patient also helped. ID consulted as well. Wound culture growing gram-negative bacilli. Lactate levels normalized. Continue IV fluids for now. On exam patient is moderately built and nourished, no apparent distress, normocephalic atraumatic, lungs are clear to auscultation, S1-S2, no murmur, abdomen soft nontender, left lower extremity-ulceration, foul-smelling, purulent, eschar of the middle one third of the anterior tibia noted. I personally reviewed the record. Patient is interviewed and examined at bedside. Patient's care is coordinated with Nathaly Jaquez PA-C. Please refer to the documentation above for details of patient's presentation and for discussion of other issues. Subjective Patient seen and examined. Still experiencing pain from wound on left leg but otherwise feels well. Wound was wrapped this morning and is waiting for evaluation from ortho surgery for possible debridement. Denies fever, chills, chest pain, SOB, nausea, vomiting or abdominal pain. Review of Systems Review of Systems: At least ten systems reviewed and negative except as noted in the HPI. Physical Exam Physical Exam: General Appearance: WD/WN, no apparent distress, resting but grimacing from pain with movement Head: normocephalic, atraumatic Eyes: normal inspection, PERRL, EOMI ENT: hearing grossly normal, pharynx normal (moist mucous membranes) Neck: supple, no JVD, no adenopathy Respiratory/Chest: lungs clear to auscultation. No wheezes, rales or rhonci. No respiratory distress or accessory muscle use Cardiovascular: regular rate, rhythm, no murmur, normal peripheral pulses Abdomen/GI: normal bowel sounds, soft, non-tender to palpation Extremities/Musculoskelatal: normal inspection, no calf tenderness, normal capillary refill, no pedal edema. L anterior campos with dressing in place, clean/dry/intact Neurologic/Psych: alert, normal mood/affect, oriented x 3 Skin: normal color, warm/dry Results & Data Vital Signs (Past 12 Hours) Vital Signs Temp Pulse Resp BP BP Pulse Ox 06/28/18 07:24 36.7 C 65 20 136/91 97 06/28/18 01:14 36.9 C 91 H 16 157/101 H 98 Laboratory Results Short CBC 06/27/18 06/28/18 Range/Units 19:19 01:23 WBC 13.17 H 9.53 (4.8-10.8) K/uL Hgb 17.8 15.1 (14.0-18.0) g/dL Hct 49.9 43.1 (42-52) % Plt Count 264 212 (130-400) K/uL BMP 06/27/18 06/28/18 19:19 01:23 Sodium 137 141 Potassium 3.8 3.4 L Chloride 106 109 H Carbon Dioxide 25 28 BUN 7 7 Creatinine 1.06 1.10 Glucose 94 114 H Calcium 9.5 8.0 L D Cardiac Enzymes 06/27/18 Range/Units 19:19 Total Creatine Kinase 68 (39-308) U/L Liver Function 06/27/18 Range/Units 19:19 Total Bilirubin 0.4 (0.2-1) mg/dl Direct Bilirubin < 0.1 (0-0.2) mg/dl AST 29 (15-37) U/L ALT 91 H (12-78) U/L Alkaline Phosphatase 92 (45-117) U/L Albumin 3.8 (3.4-5.0) gm/dl Urine / Range/Units 21:30 Urine Color Yellow Urine Appearance Clear (Clear) Urine pH 5.0 (4.5-7.5) Ur Specific [place] 1.013 (1.000-1.030) Urine Protein Negative (Negative) Urine Glucose (UA) Negative (Negative) Diagnostic Findings CXR: IMPRESSION: No acute process within the chest. Specifically, no evidence for a cavitary focus within the lungs. Tibia/Fibula XR: IMPRESSION: 1. Soft tissue defect in the medial lower leg. No subjacent osseous involvement. 2. No acute osseous injury. Lower extremity MRI: IMPRESSION: A 3.5 cm focal skin ulceration within the anterior lower leg at the level the mid tibia. Deep to the skin ulceration is mild periosteal edema/enhancement at the mid tibial shaft which may be reactive to the skin ulceration/cellulitis. However, no cortical destruction or abnormal marrow signal within the medullary cavity to suggest osteomyelitis at this time. (1) Cellulitis Laterality: left Site of cellulitis: extremity Site of cellulitis of ex tremity: lower extremity Qualified Code(s): L03.116 - Cellulitis of left lower limb
--- NOTE | 2018-06-28 14:39 | Pharmacy Report ---
Pharmacy Abx Initial Consult - Date of Service June 28, 2018 - Pharmacy Dosing Scope Date of Consult: 06/28/18 Consultation requested by: Dr. Del Rosario Pharmacy is consulted to initiate Vancomycin IV dosing therapy, order appropriate labs and adjust drug dose/frequency. - Subjective The patient is a 42 year old M admitted on 06/27/18 23:38. - Objective Height: 5 ft 8 in Weight: 87.9 kg Vital Signs (Past 12hrs): Vital Signs Temp Pulse Resp BP Pulse Ox 06/28/18 07:24 36.7 C 65 20 136/91 97 Lab Results (24hrs): Laboratory Tests (24 Hours) 06/28/18 06/28/18 06/27/18 01:23 01:23 19:19 WBC 9.53 Neut # (Auto) 6.12 ESR Creatinine 1.10 1.06 Est Cr Clr Drug Dosing 93.3 96.6 Total Creatine Kinase 68 C-Reactive Protein 0.69 H Procalcitonin 06/27/18 06/27/18 06/27/18 19:19 19:19 19:19 WBC 13.17 H Neut # (Auto) 8.99 H ESR 46 H Creatinine Est Cr Clr Drug Dosing Total Creatine Kinase C-Reactive Protein Procalcitonin < 0.05 Micro Results: 06/27/18 19:37 Gram Stain - Final Leg,Left Wound Culture - Pending 06/27/18 19:35 Aerobic Blood Culture - Pending Blood Anaerobic Blood Culture - Pending 06/27/18 19:10 Aerobic Blood Culture - Pending Blood Anaerobic Blood Culture - Pending - Assessment & Plan Assessment 42 year old M admitted with L leg gangrenous wound. He was on oral Augmentin for this for 20 days but failed therapy. Plan Vancomycin and Zosyn per pharmacy consult ordered for treatment of gangrenous L leg wound. Vancomycin IV * Estimated PK Parameters: Vd = 0.7 L/kg, Brian = 0.085 hr-1, t1/2 = 8.2 hr * Loading dose: Vancomycin 1750 mg (20 mg/kg) * Maintenance dose: Vancomycin 1500 mg IV (17 mg/kg) every 10 hours * Goal trough level for severe SSTI: 15 to 20 mcg/mL * Trough level ordered for 06/29/18 before dose at 1000 after 3 maintenance doses. Zosyn * Zosyn 4.5 gm IV x 1 given in ED yesterday then Zosyn extended infusion 3.375 gm IV q8h started this AM. Pharmacy will continue to follow and will adjust dose/frequency as necessary. Thank you.
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
[2018-06-28] MEDS ORDERED: MIDAZOLAM HCL 1 MG/ML 2ML VIAL ONE (15:03)
[2018-06-28] MEDS ORDERED: fentaNYL citrate 100 MCG/2 ML VIAL ONE ×2 (15:03→15:54)
[2018-06-28] MEDS ORDERED: PROPOFOL IV EMULSION 10 MG/ML 20 ML VIAL IV ONE (15:03)
[2018-06-28] MEDS ORDERED: LIDOCAINE HCL 2% 2 ML VIAL/AMP(20MG/ML) INFIL ONE (15:03)
[2018-06-28] MEDS ORDERED: BACITRACIN INJ 50,000 UNIT VIAL ONE (15:08)
--- NOTE | 2018-06-28 15:21 | Anesthesiology Consultation ---
Date of Service June 28, 2018 Assessment & Plan Chart Review Chart Review: Acceptable Risk for Surgery and Patient NOT seen in Pre Admission Testing Consults Requested none ASA ASA2 Proposed Anesthesia Anesthesia Type: General Risk / Benefits Reviewed With: PT / POA / Parent / Guardian, Accepts Plan and Informed Consent Obtained History Surgery Operation Date: 06/28/18 14:25 Proposed Procedures p Left Incision and Drainage Leg Wound, Possible Wound Vac - Ramone Powell DO Height/Weight Height: 1.73 m Weight: 87.9 kg Allergies Allergy/AdvReac Type Severity Reaction Status Date / Time Sulfa (Sulfonamide Allergy Severe Rash Verified 06/27/18 18:45 Antibiotics) Medications Home Medications Medication Instructions Recorded Confirmed Last Taken No Known Home Medications 06/27/18 06/27/18 Unknown Active Medications Generic Name Dose Route Start Last Admin Trade Name Freq PRN Reason Stop Dose Admin Gadobutrol 8.5 ml 06/28/18 09:44 06/28/18 09:45 Gadavist 65ml IV 07/02/18 09:43 8.5 ml ONCE PRN Administration Interaction Checking Hydromorphone HCl 0.5 mg 06/28/18 01:14 06/28/18 10:49 Dilaudid IV 07/12/18 01:13 0.5 mg Q3H PRN Administration Pain Piperacillin Sod/Tazobactam 115 mls @ 28.75 mls/hr 06/28/18 06:00 06/28/18 14:11 Sod 3.375 gm/ Dextrose IV 07/08/18 05:59 28.8 mls/hr Q8H BECKY Administration Protocol Sodium Chloride 1,000 mls @ 125 mls/hr 06/28/18 01:14 06/28/18 14:19 Nss 1000ml IV 07/28/18 01:13 0 mls/hr .Q8H BECKY Infusion Vancomycin HCl 1,500 mg/ 530 mls @ 200 mls/hr 06/28/18 04:00 06/28/18 14:11 Sodium Chloride IV 07/08/18 03:59 200 mls/hr Q10H BECKY Administration Protocol Clindamycin Phosphate 600 mg/ 54 mls @ 100 mls/hr 06/28/18 11:00 06/28/18 13:15 Dextrose IV 06/30/18 10:59 Infused Q8H BECKY Infusion NPO Date Last Intake of Fluids: 06/28/18 Time Last Intake of Fluids: 10:00 Last Intake of Fluids Comment: with meds Date Last Intake of Solids: 06/27/18 Time Last Intake of Solids: 00:15 Past Medical History Medical History Infection, wound status post trauma (Acute) Cellulitis (Acute) Eschar of wound bed (Acute) No significant past medical history H/o using inhaler at age 14; no issues since then Exercise / Class Metabolic Activity II 4-5 Yardwork/Stairs/Walk up hill Past Surgical History No previous surgical history Past Anesthesia History No Family Hx of Anesthesia Complications History of PONV No Hx of PONV and No Hx of Motion Sickness Social History Smoking Status: Current every day smoker tobacco type: cigarettes Smoking cigarettes per day: 10 Hx Alcohol Use: Yes Alcohol type: beer alcohol intake frequency: a few times a week Hx Substance Use: Yes substance use type: marijuana (Last use 6 months ago) Review of Systems Respiratory: no cough and no dyspnea Cardiovascular: no chest pain and no dyspnea on exertion Gastrointestinal: no nausea and no vomiting Physical Exam Vital Signs Last Vital Signs Temp 36.8 C 06/28/18 15:20 Pulse 77 06/28/18 15:20 Resp 18 06/28/18 15:20 BP 174/99 H 06/28/18 15:20 Pulse Ox 96 06/28/18 15:20 ENMT Mouth: no TMJ abnormality and no TMJ clicking Thyromental Distance: > or= 3.5 Finger Breadths Mallampati Class: III Neck normal visual inspection; neck extension not limited Respiratory Auscultation: lungs clear to auscultation bilaterally Cardiovascular Rate/Rhythm: regular rate and regular rhythm Psychiatric Orientation: alert and oriented x 3 Testing Laboratory Results 06/28/18 01:23 06/28/18 01:23 06/27/18 06/27/18 19:19 21:30 PT 10.5 INR 1.0 APTT 26.2 Urine Color Yellow Urine Appearance Clear Urine pH 5.0 Ur Specific [place] 1.013 Urine Protein Negative Urine Glucose (UA) Negative Urine Ketones Negative Urine Nitrite Negative Ur Leukocyte Esterase Negative 06/27/18 19:37 Gram Stain - Final Leg,Left Wound Culture - Preliminary Gram negative bacilli Electrocardiogram Date: 06/27/18 Findings: + ST @ (101 bpm) Sinus tachycardia Otherwise normal ECG No previous ECGs available Confirmed by Ezra Strauss ([id number]) on 06/28/2018 11:26:54 AM Chest X-Ray Date: 06/27/18 Findings: + NAD FINDINGS: The lungs are clear. Cardiac silhouette is normal in size. No pleural effusions. No pneumothorax. Old, healed right clavicle fracture. IMPRESSION: No acute process within the chest. Specifically, no evidence for a cavitary focus within the lungs.
--- NOTE | 2018-06-28 15:30 | History & Physical Bridge Note ---
Date of Service June 28, 2018 History & Physical Bridge Note I have examined the patient, reviewed the History & Physical and in the interval since the performance of the History & Physical I have noted the following changes of clinical significance: no changes noted
[2018-06-28] MEDS ORDERED: fentaNYL citrate 100 MCG/2 ML VIAL IV PRN (15:38)
[2018-06-28] MEDS ORDERED: HYDROmorphone INJ 1 MG/ML SYRINGE IV PRN (15:38)
[2018-06-28] MEDS ORDERED: ATROPINE SULFATE 0.1 MG/ML 10ML SYR IV PRN (15:38)
[2018-06-28] MEDS ORDERED: PHENYLEPHRINE 100MCG/ML 5ML SYR IV PRN (15:38)
[2018-06-28] MEDS ORDERED: ePHEDrine sulfate 50 MG/ML AMP IV PRN (15:38)
[2018-06-28] MEDS ORDERED: PROMETHAZINE HCL 12.5 MG in SODIUM CHLORIDE 0.9% 50 ML IV PRN (15:38)
[2018-06-28] MEDS ORDERED: DEXAMETHASONE SOD INJ 4 MG/ML VIAL ONE (16:28)
[2018-06-28] MEDS ORDERED: ONDANSETRON INJ 2 MG/ML 2 ML VIAL ONE (16:29)
--- NOTE | 2018-06-28 16:29 | Post Operative Brief Note ---
Immediate Post Op Note v1 Date of Surgery June 28, 2018 Pre & Post Diagnosis Operation Date: 06/28/18 14:25 Pre-Op Diagnosis: LEFT LEG WOUND Post-Op Diagnosis: LEFT LEG WOUND Procedure Operation Date: 06/28/18 14:25 Actual Procedures p Left Incision and Drainage Leg Wound, application of Wound Vac(Left) - Ramone Powell DO Surgeon Ramone Powell DO Consumer Relations Specialist none Estimated Blood Loss 50 Findings Consistent with Post-Op Diagnosis Fluids 300 cc LR Specimens tissue x 1 anterior tibia wound bed cultures x 2 anterior tibia wound bed Drains Other (wound vac) Anesthesia Type General Complications none Disposition Disposition: Recovery Room Overlapping Procedure I was present for: the critical portions of procedure. I was immediately available: during the entire case. Back up surgeon: was not required during procedure.
--- NOTE | 2018-06-28 16:47 | Orthopedic Progress Note ---
Date of Service June 28, 2018 Assessment & Plan (1) Infection, wound status post trauma: s/p I+D, wound vac LLE -IV abx vanc/zosyn per ID -DVT ppx SCDs/TEDS non operative extremity, 81mg ASA BID -PWB LLE -PT/OT with assistive devices -Ice/elevation -am labs -Wound care managing wound vac Subjective Post Operative Progress Note Patient seen in PACU, comfortable, denies complaints, pain well controlled, no acute issues. Review of Systems Review of Systems: All systems reviewed & are unremarkable except as noted in HPI & below Constitutional: as per Subjective / HPI Physical Exam Physical Exam: LLE NVSI +EHL/FHL/TA/GS SILT grossly, +2 DP pulse, compartments soft NT, dressing cdi. Wound vac intact Constitutional: WD/WN, vitals as above Results & Data Vital Signs (Past 12 Hours) Vital Signs Temp Pulse Resp BP Pulse Ox 06/28/18 15:32 36.9 C 74 20 167/111 H 96 06/28/18 15:20 36.8 C 77 18 174/99 H 96 06/28/18 07:24 36.7 C 65 20 136/91 97
--- NOTE | 2018-06-28 17:28 | Anesthesiology Progress Note ---
Date of Service June 28, 2018 Anesthesia Post Procedure Vital Signs Vital Signs: Temp Pulse Pulse Resp BP BP BP 06/28/18 17:20 54 L 17 117/78 06/28/18 17:10 36.5 C 56 L 14 128/79 06/28/18 17:00 57 L 14 107/72 06/28/18 16:50 53 L 14 112/82 06/28/18 16:40 54 L 15 126/80 06/28/18 16:34 36.2 C L 68 16 136/83 06/28/18 15:32 36.9 C 74 20 167/111 H 06/28/18 15:20 36.8 C 77 18 174/99 H 06/28/18 07:24 36.7 C 65 20 136/91 06/28/18 01:14 36.9 C 91 H 16 157/101 H 06/28/18 00:53 81 18 148/101 H 06/27/18 23:00 87 19 148/110 H 06/27/18 22:00 94 H 17 150/108 H 06/27/18 21:00 92 H 25 H 151/104 H 06/27/18 20:52 90 21 06/27/18 20:00 92 H 19 168/115 H 06/27/18 18:53 97 H 06/27/18 17:58 37 C 142 H 20 158/114 H Pulse Ox 06/28/18 17:20 97 06/28/18 17:10 98 06/28/18 17:00 96 06/28/18 16:50 99 06/28/18 16:40 99 06/28/18 16:34 98 06/28/18 15:32 96 06/28/18 15:20 96 06/28/18 07:24 97 06/28/18 01:14 98 06/28/18 00:53 98 06/27/18 23:00 96 06/27/18 22:00 96 06/27/18 21:00 06/27/18 20:52 06/27/18 20:00 06/27/18 18:53 98 06/27/18 17:58 142 H Pain Intensity Left Calf: Pain Intensity: 5 Transfer of Care Handoff Completed per policy Notes Mental Status: alert / awake / arousable Patient Amnestic to Procedure: Yes Nausea / Vomiting: adequately controlled Pain: adequately controlled Airway Patency, RR, SpO2: stable & adequate BP & HR: stable & adequate Hydration State: stable & adequate Anesthetic Complications: no major complications apparent
[2018-06-28] MEDS ORDERED: BISACODYL 10 MG SUPP PR PRN (17:38)
[2018-06-28] MEDS ORDERED: MAGNESIUM HYDROXIDE SUSP 30 ML UDC PO PRN (17:38)
[2018-06-28] MEDS ORDERED: NALOXONE HCL 0.4 MG/1 ML VIAL/CARP IV PRN (17:38)
[2018-06-28] MEDS ORDERED: HYDROmorphone INJ 0.5 MG/0.5 ML SYR IV PRN (17:38)
[2018-06-28] MEDS ORDERED: METOCLOPRAMIDE HCL INJ 5 MG/ML 2 ML VIAL IV PRN (17:38)
[2018-06-28] MEDS: ASPIRIN 81 MG ECTAB PO SCH (21:23)
[2018-06-28] MEDS: DOCUSATE SODIUM 100 MG CAP PO SCH (21:24)
[2018-06-28] MEDS: SENNA 8.6 MG TAB PO SCH (21:24)
[2018-06-28] MEDS: ACETAMINOPHEN 500 MG TAB PO SCH (21:24)
[2018-06-29] MEDS: OXYCODONE HCL IR 5 MG TAB (IMMEDIATE RELEASE) PO PRN ×2 (00:04→08:53)
[2018-06-29] MEDS: CLINDAMYCIN 600 MG in DEXTROSE 5% 50 ML IV SCH ×3 (02:34→19:43)
[2018-06-29] MEDS: SODIUM CHLORIDE 0.9% 1000ML 1,000 ML IV SCH (03:52)
[2018-06-29] MEDS: PIPERACILLIN/TAZOBACTAM 3.375 GM in DEXTROSE 5% 100 ML IV SCH ×3 (05:37→21:47)
[2018-06-29] MEDS: HYDROmorphone INJ 0.5 MG/0.5 ML SYR IV PRN ×6 (05:41→23:47)
[2018-06-29] MEDS: ACETAMINOPHEN 500 MG TAB PO SCH ×3 (05:50→21:46)
[2018-06-29] MEDS: ASPIRIN 81 MG ECTAB PO SCH ×2 (08:54→19:51)
[2018-06-29] MEDS: DOCUSATE SODIUM 100 MG CAP PO SCH ×2 (08:54→19:50)
[2018-06-29] MEDS: MULTIVITAMIN TAB PO SCH (08:55)
--- NOTE | 2018-06-29 09:01 | Orthopedic Progress Note ---
Date of Service June 29, 2018 Assessment & Plan (1) Infection, wound status post trauma: POD 1 s/p I+D, wound vac LLE -IV abx vanc/zosyn per ID -DVT ppx SCDs/TEDS non operative extremity, 81mg ASA BID -PWB LLE -PT/OT with assistive devices -Ice/elevation -Wound care managing wound vac - discussed with Letty Diego. Plan for change tomorrow. Possibly a second change on Tuesday if patient still in house. Patient seen and examined, agree with above assessment and plan. Subjective POD 1 Pt lying in bed awake, alert. Pain controlled. States he was up ambulating in the room without difficulty or increased pain. Review of Systems Review of Systems: All systems reviewed & are unremarkable except as noted in HPI & below Constitutional: as per Subjective / HPI Physical Exam Physical Exam: Dressing C/D/I. Calves soft, NT. NV intact. Wound vac functioning well. Small amount of fluid in collection unit. Results & Data Vital Signs (Past 12 Hours) Vital Signs Temp Pulse Resp BP BP Pulse Ox 06/29/18 07:49 36.6 C 65 18 151/88 H 95 06/28/18 22:53 36.8 C 51 L 20 123/77 96
[2018-06-29] MEDS ORDERED: VANCOMYCIN TROUGH ONE (09:30)
[2018-06-29] MEDS: VANCOMYCIN HCL 1,500 MG in SODIUM CHLORIDE 0.9% 500 ML IV SCH (10:37)
[2018-06-29 10:43] LABS: Hematocrit (blood only) 42.2 % (42-52); Hemoglobin 14.8 g/dL (14.0-18.0); Mean Corpuscular Hgb Conc 35.1 g/dL (32-36); Mean Corpuscular Volume 89.6 fL (80-100); Mean Platelet Volume 10.5 fL (7.4-10.4); Platelet Count 213 K/uL (130-400); RDW Coefficient of Variation 12.2 % (11.5-14.5); RDW Standard Deviation 39.9 fL (36.4-46.3); Red Blood Count 4.71 M/uL (4.7-6.1); White Blood Count 12.82 K/uL (4.8-10.8)
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
[2018-06-29 11:17] LABS: BUN Creatinine Ratio 7.9 (10-20); Calcium 8.9 mg/dl (8.5-10.1); Creatinine Clr Calc Pharmacy 97.7 ml/min; Est GFR (Non-African American) 84.6
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
--- NOTE | 2018-06-29 12:24 | Anesthesiology Progress Note ---
Date of Service June 29, 2018 Anesthesia Post Procedure Vital Signs Vital Signs: Temp Pulse Resp BP BP Pulse Ox 06/29/18 07:49 36.6 C 65 18 151/88 H 95 06/28/18 22:53 36.8 C 51 L 20 123/77 96 06/28/18 20:39 36.9 C 50 L 18 136/82 96 06/28/18 17:39 36.6 C 56 L 16 135/87 94 06/28/18 17:20 54 L 17 117/78 97 06/28/18 17:10 36.5 C 56 L 14 128/79 98 06/28/18 17:00 57 L 14 107/72 96 06/28/18 16:50 53 L 14 112/82 99 06/28/18 16:40 54 L 15 126/80 99 06/28/18 16:34 36.2 C L 68 16 136/83 98 06/28/18 15:32 36.9 C 74 20 167/111 H 96 06/28/18 15:20 36.8 C 77 18 174/99 H 96 Pain Intensity Left Calf: Pain Intensity: 5 Left Leigh: Pain Intensity: 7 Notes Mental Status: alert / awake / arousable and participated in evaluation Patient Amnestic to Procedure: Yes Nausea / Vomiting: adequately controlled Pain: adequately controlled Airway Patency, RR, SpO2: stable & adequate BP & HR: stable & adequate Hydration State: stable & adequate Anesthetic Complications: no major complications apparent and Pt Satisfied with anesthetic care
--- NOTE | 2018-06-29 14:10 | Infectious Disease Progress Nt ---
Date of Service June 29, 2018 Assessment & Plan (1) Infection, wound status post trauma: MRI negative for osteo, no bone involvement noted per op note. no necrotizing fasciitis seen on CT.. Blood cultures negative, superficial culture with E. coli only but will maintain broad spectrum abx for now as multiple bacteria noted on gram stain follow cultures. will follow. Subjective pt pod #1 I&D or necrotic lle wound with vac. Initial superfiical culture growing pansensitive E. coli, however gram stain with gpc as well. OR cultures x 2 pending, gpc, gpr, gnr on gram stain. blood cultures remain negative. He remains on emperic vanco, zosyn and clinda. afebrile. no am labs. Results & Data Vital Signs (Past 12 Hours) Vital Signs Temp Pulse Resp BP Pulse Ox 06/29/18 07:49 36.6 C 65 18 151/88 H 95 Laboratory Results Microbiology 06/27/18 19:37 Leg,Left Gram Stain - Final 06/27/18 19:37 Leg,Left Wound Culture - Final Escherichia coli 06/28/18 16:00 Leg,Left Gram Stain - Final 06/28/18 16:00 Leg,Left Gram Stain - Final 06/28/18 16:00 Leg,Left Gram Stain - Final 06/27/18 19:10 Blood Aerobic Blood Culture - Preliminary No growth in Aerobic bottle after 24 hours. 06/27/18 19:10 Blood Anaerobic Blood Culture - Preliminary No growth in Anaerobic bottle after 24 hours. 06/27/18 19:35 Blood Aerobic Blood Culture - Preliminary No growth in Aerobic bottle after 24 hours. 06/27/18 19:35 Blood Anaerobic Blood Culture - Preliminary No growth in Anaerobic bottle after 24 hours.
[2018-06-29] MEDS ORDERED: VANCOMYCIN HCL 1,500 MG in SODIUM CHLORIDE 0.9% 500 ML IV SCH (18:00)
[2018-06-29] MEDS: SENNA 8.6 MG TAB PO SCH (19:49)
[2018-06-30] MEDS: OXYCODONE HCL IR 5 MG TAB (IMMEDIATE RELEASE) PO PRN ×4 (01:34→14:50)
[2018-06-30] MEDS: CLINDAMYCIN 600 MG in DEXTROSE 5% 50 ML IV SCH (02:50)
[2018-06-30] MEDS: HYDROmorphone INJ 0.5 MG/0.5 ML SYR IV PRN ×3 (03:23→11:53)
[2018-06-30] MEDS: ACETAMINOPHEN 500 MG TAB PO SCH ×2 (05:30→14:51)
[2018-06-30] MEDS: PIPERACILLIN/TAZOBACTAM 3.375 GM in DEXTROSE 5% 100 ML IV SCH ×2 (05:30→14:50)
[2018-06-30 06:26] LABS: Hematocrit (blood only) 41.7 % (42-52); Mean Corpuscular Volume 89.5 fL (80-100); Mean Platelet Volume 10.2 fL (7.4-10.4); Platelet Count 214 K/uL (130-400); RDW Coefficient of Variation 12.5 % (11.5-14.5); RDW Standard Deviation 40.5 fL (36.4-46.3); Red Blood Count 4.66 M/uL (4.7-6.1); White Blood Count 10.47 K/uL (4.8-10.8)
[2018-06-30 06:54] LABS: Creatinine Clr Calc Pharmacy 99.5 ml/min; Est GFR (African American) 100.3; Est GFR (Non-African American) 86.5; Potassium 4.2 mmol/L (3.5-5.1)
[2018-06-30] MEDS: DOCUSATE SODIUM 100 MG CAP PO SCH (07:50)
[2018-06-30] MEDS: ASPIRIN 81 MG ECTAB PO SCH (07:50)
[2018-06-30] MEDS: MULTIVITAMIN TAB PO SCH (07:50)
--- NOTE | 2018-06-30 10:39 | Infectious Disease Progress Nt ---
Date of Service June 30, 2018 Assessment & Plan (1) Infection, wound status post trauma: can continue on zosyn for now. If GBS is pcn sensitive would suggest d/c on Augmentin 875mg po bid with food for min 3 weeks. He is planning to follow at the wound center post d/c from the hospital. Will plan to follow at wound center as well and will extend duration of abx if needed, based on wound healing. Subjective pt feeling much better, denies pain. spoke with wound care nurse after vac change this morning. states wound base is clean, no necrosis noted. no f/c. tolerating zosyn, vanco and clinda stopped yesterday. OR cultures all growing GBS, final pending, ER culture growing [place] sensitive E. coli. no abd pain, no n/v/d, eating well. no cp, sob, cough. overall feeling much better. Review of Systems Review of Systems: All systems reviewed & are unremarkable except as noted in HPI & below Physical Exam Constitutional: WD/WN, vitals as above Eyes: PERRL, conjunctivae normal, anicteric sclerae ENMT: external ear and nose normal, oropharynx normal Neck: normal visual inspection Respiratory: normal respiratory effort, lungs clear to auscultation Cardiovascular: RRR, no murmur, no edema Gastrointestinal (Abdomen): normal bowel sounds, soft, nontender, no hepatosplenomegaly Musculoskeletal: no cyanosis or clubbing, extremities motor strength 5/5 Skin: no rashes, warm and dry vac in place, no surrounding warmth, erythema, edema, tenderness Psychiatric: A+Ox3, euthymic affect Results & Data Vital Signs (Past 12 Hours) Vital Signs Temp Pulse Resp BP Pulse Ox 06/30/18 06:59 36.9 C 65 20 145/82 H 96 06/29/18 22:47 36.7 C 60 18 143/90 H 96 Laboratory Results Microbiology 06/27/18 19:10 Blood Aerobic Blood Culture - Preliminary No growth in Aerobic bottle after 48 hours. 06/27/18 19:10 Blood Anaerobic Blood Culture - Preliminary No growth in Anaerobic bottle after 48 hours. 06/27/18 19:35 Blood Aerobic Blood Culture - Preliminary No growth in Aerobic bottle after 48 hours. 06/27/18 19:35 Blood Anaerobic Blood Culture - Preliminary No growth in Anaerobic bottle after 48 hours. 06/28/18 16:00 Leg,Left Gram Stain - Final 06/28/18 16:00 Leg,Left Deep Wound Culture - Preliminary Group B Beta Strep 06/28/18 16:00 Leg,Left Gram Stain - Final 06/28/18 16:00 Leg,Left Aerobic and Anaerobic Culture - Preliminary Group B Beta Strep 06/28/18 16:00 Leg,Left Gram Stain - Final 06/28/18 16:00 Leg,Left Aerobic and Anaerobic Culture - Preliminary Group B Beta Strep 06/27/18 19:37 Leg,Left Gram Stain - Final 06/27/18 19:37 Leg,Left Wound Culture - Final Escherichia coli
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
--- NOTE | 2018-06-30 15:23 | Orthopedic Progress Note ---
Date of Service June 30, 2018 Assessment & Plan (1) Infection, wound status post trauma: POD 2 s/p I+D, wound vac LLE -IV abx zosyn per ID. Depending on finalized cultures, patient may go home on IV or PO ABX for at least 3 weeks and will be followed by ID at wound clinic visits. -DVT ppx SCDs/TEDS non operative extremity, 81mg ASA BID -PWB LLE -PT/OT with assistive devices -Ice/elevation -Wound care managing wound vac - discussed with Letty Diego. Changed today. Possibly a second change on Tuesday (3 days from now)if patient still in house. Patient seen and examined, agree with above assessment and plan. Subjective Seen and examined. Overall, doing well. Pain is controlled. States wound nurse was in earlier today to change wound vac and she was very happy with the wound. Hoping to be able to head home over the next couple of days. Denies fever or chills. No lightheadedness, headache, chest pain, SOB, nausea, vomiting, abdominal pain, dysuria, diarrhea or constipation. Review of Systems Review of Systems: All systems reviewed & are unremarkable except as noted in HPI & below Constitutional: as per Subjective / HPI Physical Exam Physical Exam: LLE NVSI +EHL/FHL/TA/GS SILT grossly, +2 DP pulse, compartments soft NT, wound vac intact. Constitutional: WD/WN, vitals as above Musculoskeletal: Left lower leg: Wound vac in place and functioning well. No erythema around the wound vac. NV intact LLE with full ROM of the ankle. Tender around the wound site, particularly over the tibia. Wound pictures reviewed with good granulation tissue over nearly the entire ulceration. Psychiatric: A+Ox3, euthymic affect Results & Data Vital Signs (Past 12 Hours) Vital Signs Temp Pulse Resp BP Pulse Ox 06/30/18 06:59 36.9 C 65 20 145/82 H 96
--- NOTE | 2018-06-30 16:56 | Discharge Summary ---
Date of Service June 30, 2018 Admission HPI Per Admitting Provider CHIEF COMPLAINT: Left lower extremity wound. HISTORY OF PRESENT ILLNESS: A 42-year-old male with no significant past medical history presents with left lower extremity wound. The patient says he had an equipment injury in April, followed with family doctor, took 10 days course of Augmentin x 2, seem to be improved and he went to work recently, light work, but noted again some redness around the area with a scab and today the scab came out and suddenly there was lot of foul smelling drainage seen and there was a deep hole, so he came to the ER here. Imaging studies showed subtle periosteal reaction periosteomyelitis could not be excluded. The patient is afebrile and hemodynamically stable. His lactate acid was slightly high at 2.2. Currently resting comfortably. The patient denies any significant pain. He was able to ambulate on the leg. Denies any chest pain, no shortness of breath, no cough, no headache, no blurred vision, no runny nose, no sore throat, some itching in the throat, started on antibiotics. No abdominal pain, no nausea, no vomiting, no diarrhea, no constipation, no blood in the stools, no hematuria, no burning micturition. Admission Exam Per Admitting Provider PHYSICAL EXAMINATION: GENERAL: The patient is of moderate build, not in acute distress. VITAL SIGNS: Temperature 37, pulse 87, respiratory rate 19, blood pressure 148/110 and oxygen 96% of room air. HEENT: No pallor, no icterus. Pupils equal, round, and reactive to light. NECK: No JVD, no neck mass, no carotid bruit. CARDIOVASCULAR: S1, S2 heard, regular rate and rhythm, no murmur, no gallop. RESPIRATORY SYSTEM: Normal AP diameter. No accessory muscle use. No wheezing, no crackles. ABDOMEN: Soft, bowel sounds present. Nontender. No distention. CENTRAL NERVOUS SYSTEM: Cranial nerves II-XII grossly intact. Nonfocal. EXTREMITIES: No edema seen. Left campos region has a deep wound with foul smelling drainage, muscles are exposed. Principal Diagnosis Discharge Information Discharge Diagnosis Left Leg Cellulitis Discharge Goals Decrease discomfort,Improve disease control, Improve function Discharge Activity Limitations Per instructions/follow-up Discharge Data Allergies Allergy/AdvReac Type Severity Reaction Status Date / Time Sulfa (Sulfonamide Allergy Severe Rash Verified 06/27/18 18:45 Antibiotics) Consultations 06/27/18 22:15 ED Decision to Admit Stat 06/28/18 01:14 Consult Case Management - Discharge Planning Routine 06/28/18 08:00 Consult Infectious Diseases Routine 06/28/18 12:59 Consult Orthopedic Surgery Routine 06/28/18 17:38 Consult Case Management - Discharge Planning Routine 06/29/18 10:13 Consult Case Management - Discharge Planning Routine Procedures Performed Operation Date: 06/28/18 14:25 Actual Procedures p Left Incision and Drainage Leg Wound, application of Wound Vac(Left) - Ramone Powell, Leg MRI: A 3.5 cm focal skin ulceration within the anterior lower leg at the level the mid tibia. Deep to the skin ulceration is mild periosteal edema/enhancement at the mid tibial shaft which may be reactive to the skin ulceration/cellulitis. However, no cortical destruction or abnormal marrow signal within the medullary cavity to suggest osteomyelitis at this time. Ordered Studies 06/27/18 18:51 CT lower leg LT w con Stat 06/28/18 01:14 MR lower leg LT wo/w con Urgent Hospital Course (1) Infection, wound status post trauma: (2) Cellulitis: This is a 42yo M with tobacco use disorder who presents with infected left lower extremity wound and surrounding cellulitis and is s/p surgical debridement 2 days ago. -H/o equipment injury in April, followed with family doctor, took 10 days course of Augmentin x 2 -Seemed to be improved and he went to work recently and noted again some redness around the area with a scab and foul smelling drainage -Left lower extremity MRI with 3.5 cm focal skin ulceration with mild periosteal edema that may be reactive to skin ulceration/cellulitis. However no evidence to suggest osteomyelitis at this time -S/p surgical debridement by ortho service on 06/28 now with LLE wound vac -OR cultures all growing GBS, final pending, ER culture growing montague sensitive E. coli -Continue Zosyn for now (Clinda and Vanco stopped). Per ID, if GBS is pcn sensitive would suggest d/c on Augmentin 875mg po bid with food for min 3 weeks with OP wound center follow up -PT/OT okay for discharge home with services for wound care -Pain control, ice and elevation (3) Tobacco use disorder: Smokes 10-20 cigarettes daily socially -Offered nicotine patch, declined -Discussed smoking cessation in regards to wound healing DVT Ppx: SCDs, 81mg ASA BID Code status: FULL Dispo: Admitted to med/surg. Plan to return home once medically stable. Patient seen in collaboration with Dr. Elias. Please see addendum. Total Time Total Time Spent Total Time Spent (In Minutes): 42 minutes Total Time Includes: Examination of the Patient, Discharge Planning, Medication Reconciliation, Communication With Other Providers and Other Discharge Plan Discharge Items Patient Disposition: Home - Home Health Services Reason For Visit: LEFT LEG WOUND Discharge Diagnosis: Left Leg Cellulitis Discharge Goals: Decrease discomfort, Improve disease control and Improve function Activity: Per 'Additional Instructions' section Exercise/Sports: Wait until after follow-up appointment Driving/Machine Use Comment: No driving until cleared by your orthopedic surgeron/Primary Care Physician Non-emergency contact: Primary Care Provider, Surgeon and Specialist Call non-emergency contact if: you have any medication questions, your symptoms worsen, your pain is not controlled, your pain is worsening, your pain is unusual for you, your pain is concerning for you, you have a fever, your wound has increased redness, your wound has increased drainage and your wound pain has increased Follow-up/Referrals: PCP,NO [Primary Care Provider] - Diet: Regular Addtl Provider Instructions: Follow-up with your primary care physician in 1 week Follow-up with infectious disease and wound care center Dr. Edith Olivera in 1 to 2 weeks Follow-up with your orthopedic surgeon Dr. Powell in 2 weeks Complete the antibiotic course as prescribed Seek immediate medical attention if your symptoms reoccur or worsen ACTIVITY RECOMMENDATIONS: SELF CARE INSTRUCTIONS AFTER I+D AND WOUND VAC APPLICATION OF LEFT LOWER LEG SPECIAL CARE INSTRUCTIONS: Keep wound VAC clean dry and intact at all times. Continue with partial weightbearing and crutches for ambulation. Take all medications as prescribed. IMPORTANT: * REMEMBER TO TAKE ASPIRIN, 81 MG, TWICE DAILY until your follow-up appointment * CALL IF INCREASED PAIN, REDNESS, DRAINAGE OR FEVER GREATER THAT 101. Continue with wound VAC and follow-up routinely with wound care as outpatient. If there is an issue with your wound VAC machine or leak call [facility] wound care or [facility] office at . FOLLOW UP VISIT: If appointment is not already scheduled: Please call [facility] to make a follow-up appointment for 2 weeks after your surgery at . Prescriptions: New oxycodone 5 mg Tablet 5 mg PO Q4H PRN (Reason: pain) 5 Days Qty: 20 RF: 0 aspirin [Ecotrin Low Strength] 81 mg Tablet,Delayed Release (Dr/Ec) 81 mg PO BID 30 Days Qty: 60 RF: 0 docusate sodium 100 mg Capsule 100 mg PO BID 14 Days Qty: 28 RF: 0 polyethylene glycol 3350 [Miralax] 17 gram Powder In Packet 17 g PO DAILY PRN (Reason: constipation) 14 Days Qty: 14 RF: 0 amoxicillin-pot clavulanate [Augmentin] 875-125 mg tablet 1 tab PO BID 21 Days Qty: 42 RF: 0 No Action No Known Home Medications RF: 0 Stand-Alone Forms: [facility] Discharge Orders: Discharge Order (Routine); Ordered 06/30/18 Ordered By: Willian Elias Admission Data Admit Date/Time: 06/27/18 23:38 Attending Provider: Willian Elias Admit Provider: Mayito Del Rosario Primary Care Provider: PCP,NO Other Providers: Gracie Alvarenga ; Mayito Del Rosario ; Shiv Quiles ; Camilo Larry Service: Medical Other Interventions: Discharge Summary Assessment (RN) Last Done: 06/30/18 17:55 DC Date/Time DO NOT enter until pt leaves facility: 06/30/18 19:19
[2018-06-30] MEDS ORDERED: VANCOMYCIN TROUGH ONE (17:30)
== END 2018-06-30 19:19 | disposition home health service (06) | DRG 572 ==
LOC: ED 17:49 → 4W 23:38 → SUATTDRO 23:38 → 4W 06-28 00:53